=== PATIENT | male | born 1975 | race Caucasian/White ===

== ENCOUNTER → 2018-10-19 | Outpatient (REF) | payer BC ==
[2018-10-19 19:48] LABS: HEMATOCRIT 44.1 % (42.0-52.0); HEMOGLOBIN 14.8 g/dl (13.5-17.5); MEAN CORPUSCULAR HEMOGLOBIN 27.5 pg (27.0-33.0); MEAN CORPUSCULAR HGB CONC 33.6 g/dl (32.0-36.5); MEAN CORPUSCULAR VOLUME 81.8 fl (80.0-96.0); PLATELET COUNT, AUTOMATED 292 10^3/uL (150-450); RED BLOOD COUNT 5.39 10^6/uL (4.30-6.10); WHITE BLOOD COUNT 11.4 10^3/uL (4.0-10.0)
[2018-10-19 20:07] LABS: HEMOGLOBIN A1c 6.8 %; MALB URINE SIEMENS 27.8 MG/L; MAU/CREAT RATIO 26.2 MCG/MG (0.0-30.0)
[2018-10-19 20:19] LABS: ALBUMIN 4.1 GM/DL (3.2-5.2); ALT/SGPT 31 U/L (12-78); BILIRUBIN,TOTAL 0.3 MG/DL (0.2-1.0); BLOOD UREA NITROGEN 23 MG/DL (7-18); CARBON DIOXIDE LEVEL 25 MEQ/L (21-32); CHLORIDE LEVEL 107 MEQ/L (98-107); CREATININE FOR GFR 0.74 MG/DL (0.70-1.30); FREE T4 0.97 NG/DL (0.76-1.46); GLOMERULAR FILTRATION RATE > 60.0 (>60); GLUCOSE, FASTING 89 MG/DL (70-100); POTASSIUM SERUM 3.8 MEQ/L (3.5-5.1); SODIUM LEVEL 139 MEQ/L (136-145); TOTAL PROTEIN 7.9 GM/DL (6.4-8.2)
== END ==
LOC: M SFHCADAM 16:34
PROVIDERS: ATTEND Physician Assistant
DX: G47.33 Obstructive sleep apnea (adult) (pediatric) (principal); E11.9 Type 2 diabetes mellitus without complications; R03.0 Elevated blood-pressure reading, without diagnosis of hypertension

== ENCOUNTER → 2019-03-20 | Outpatient (CLI) | payer BC ==
--- NOTE | 2019-03-20 14:18 | REP ---
Left lower extremity deep vein duplex ultrasound: The deep veins demonstrate normal compression, normal Doppler color flow and normal Doppler waveforms with respiration and augmentation from the popliteal vein to the common femoral vein. Impression: There is no deep vein thrombus. Electronically Signed by Alvaro Lopes MD 03/20/2019 02:09 P
== END ==
LOC: M RAD 13:38
PROVIDERS: ATTEND Physician Assistant
DX: M79.605 Pain in left leg (principal)

== ENCOUNTER → 2019-04-03 | Outpatient (REF) | payer BC | LOC: M SFHCADAM 08:58 | PROVIDERS: ATTEND Physician Assistant | DX: E11.9 Type 2 diabetes mellitus without complications (principal); E78.2 Mixed hyperlipidemia ==

== ENCOUNTER → 2019-11-06 | Outpatient (REF) | payer BC ==
[2019-11-06 13:27] LABS: HEMATOCRIT 46.1 % (42.0-52.0); HEMOGLOBIN 15.3 g/dl (13.5-17.5); MEAN CORPUSCULAR HEMOGLOBIN 28.1 pg (27.0-33.0); MEAN CORPUSCULAR HGB CONC 33.2 g/dl (32.0-36.5); MEAN CORPUSCULAR VOLUME 84.6 fl (80.0-96.0); PLATELET COUNT, AUTOMATED 289 10^3/uL (150-450); RED BLOOD COUNT 5.45 10^6/uL (4.30-6.10); WHITE BLOOD COUNT 8.7 10^3/uL (4.0-10.0)
[2019-11-06 13:53] LABS: HEMOGLOBIN A1c 6.7 %
[2019-11-06 14:01] LABS: MALB URINE SIEMENS 23.7 MG/L
[2019-11-06 14:04] LABS: ALBUMIN 3.8 GM/DL (3.2-5.2); ALT/SGPT 33 U/L (12-78); BILIRUBIN,TOTAL 0.4 MG/DL (0.2-1.0); BLOOD UREA NITROGEN 23 MG/DL (7-18); CALCIUM LEVEL 9.2 MG/DL (8.5-10.1); CARBON DIOXIDE LEVEL 25 MEQ/L (21-32); CHLORIDE LEVEL 105 MEQ/L (98-107); CHOLESTEROL LEVEL 128 MG/DL (<200); CHOLESTEROL RISK RATIO 4.571 (<5); CREATININE FOR GFR 0.74 MG/DL (0.70-1.30); GLOMERULAR FILTRATION RATE > 60.0 (>60); GLUCOSE, FASTING 128 MG/DL (70-100); HDL CHOLESTEROL 28 MG/DL (>40); LDL CHOLESTEROL 26 MG/DL (<100); NON-HDL-C 100 MG/DL; POTASSIUM SERUM 4.3 MEQ/L (3.5-5.1); SODIUM LEVEL 137 MEQ/L (136-145); TOTAL PROTEIN 7.5 GM/DL (6.4-8.2); TRIGLYCERIDES LEVEL 368 MG/DL (<150)
== END ==
LOC: M SFHCADAM 12:48
PROVIDERS: ATTEND Physician Assistant
DX: E11.9 Type 2 diabetes mellitus without complications (principal); E78.2 Mixed hyperlipidemia; F32.4 Major depressive disorder, single episode, in partial remission; R00.0 Tachycardia, unspecified

== ENCOUNTER → 2019-11-12 | Outpatient (CLI) | payer BC ==
--- NOTE | 2019-11-18 06:46 | SLEEPCENT ---
DATE: 11/12/2019 ORDERED BY: Radha Pittman RN, ANP Nocturnal polysomnography was performed for evaluation of sleep physiology in this patient with a prior history of obstructive sleep apnea syndrome. Eight hours and 37 minutes of data were reviewed. There were only 79 minutes of sleep identified. Sleep latency was mildly prolonged at 33 minutes. REM sleep was not achieved. Sleep architecture when sleep was achieved showed poor progression and significant fragmentation. Overall sleep efficiency was 15.4%. The electrocardiogram showed a sinus rhythm with an average heart rate of 80 beats per minute. EEG showed normal waveforms for wake and sleep. There were 172 respiratory events identified of 10 seconds in duration or greater for an apnea/hypopnea index of 130.6. The events were obstructive, occurred in non-REM and were no exclusive to sleep position. Arousals from respiratory events occurred 15.9 times per hour, and oxygen desaturations were seen into the low 80s. Minimal limb activity was appreciated and the remaining measures of sleep physiology were normal. IMPRESSION: Severe obstructive sleep apnea syndrome (G47.33). Apnea/hypopnea index 130.6. RECOMMENDATION: The patient should be encouraged to return to [facility] for pressure therapy at his earliest convenience. In the interim, alcohol and sedative avoidance should be practiced and caution exercised during the operation of motor vehicles. MG
== END ==
LOC: M SLEEP 20:00
PROVIDERS: ATTEND Nurse Practitioner Adult Health
DX: G47.33 Obstructive sleep apnea (adult) (pediatric) (principal)

== ENCOUNTER → 2020-12-14 | Outpatient (REF) | payer BC ==
[2020-12-14 13:26] LABS: HEMATOCRIT 44.7 % (42.0-52.0); HEMOGLOBIN 14.9 g/dl (13.5-17.5); MEAN CORPUSCULAR HEMOGLOBIN 27.9 pg (27.0-33.0); MEAN CORPUSCULAR HGB CONC 33.3 g/dl (32.0-36.5); MEAN CORPUSCULAR VOLUME 83.6 fl (80.0-96.0); PLATELET COUNT, AUTOMATED 265 10^3/uL (150-450); RED BLOOD COUNT 5.35 10^6/uL (4.30-6.10); WHITE BLOOD COUNT 9.8 10^3/uL (4.0-10.0)
[2020-12-14 13:47] LABS: HEMOGLOBIN A1c 6.9 %
[2020-12-14 13:59] LABS: ALBUMIN 3.7 GM/DL (3.2-5.2); ALT/SGPT 31 U/L (12-78); BILIRUBIN,TOTAL 0.3 MG/DL (0.2-1.0); BLOOD UREA NITROGEN 25 MG/DL (7-18); CARBON DIOXIDE LEVEL 27 MEQ/L (21-32); CHLORIDE LEVEL 104 MEQ/L (98-107); CHOLESTEROL LEVEL 123 MG/DL (<200); CREATININE FOR GFR 0.76 MG/DL (0.70-1.30); GLOMERULAR FILTRATION RATE > 60.0 (>60); GLUCOSE, FASTING 152 MG/DL (70-100); HDL CHOLESTEROL 25 MG/DL (>40); LDL CHOLESTEROL 34 MG/DL (<100); NON-HDL-C 98 MG/DL; POTASSIUM SERUM 4.5 MEQ/L (3.5-5.1); SODIUM LEVEL 137 MEQ/L (136-145); TOTAL PROTEIN 7.1 GM/DL (6.4-8.2); TRIGLYCERIDES LEVEL 321 MG/DL (<150)
[2020-12-14 14:01] LABS: TOTAL 25(OH) VITAMIN D 30.9 NG/ML (30.0-100.0); VITAMIN B12 LEVEL 672 PG/ML
[2020-12-14 14:02] LABS: FOLATE 8.2 NG/ML
== END ==
LOC: M SFHCADAM 07:56
PROVIDERS: ATTEND Physician Assistant
DX: E11.9 Type 2 diabetes mellitus without complications (principal); I10 Essential (primary) hypertension; E78.2 Mixed hyperlipidemia

== ENCOUNTER → 2021-06-14 | Outpatient (REF) | payer BC ==
[2021-06-14 13:11] LABS: BLOOD UREA NITROGEN 33 MG/DL (7-18); CARBON DIOXIDE LEVEL 27 MEQ/L (21-32); CHLORIDE LEVEL 105 MEQ/L (98-107); CREATININE FOR GFR 0.83 MG/DL (0.70-1.30); GLOMERULAR FILTRATION RATE > 60.0 (>60); GLUCOSE, FASTING 150 MG/DL (70-100); POTASSIUM SERUM 4.6 MEQ/L (3.5-5.1); SODIUM LEVEL 137 MEQ/L (136-145)
[2021-06-14 13:30] LABS: HEMOGLOBIN A1c 7.3 %
== END ==
LOC: M SFHCADAM 08:07
PROVIDERS: ATTEND Physician Assistant
DX: E11.9 Type 2 diabetes mellitus without complications (principal); I10 Essential (primary) hypertension

== ENCOUNTER → 2021-12-24 | Outpatient (REF) | payer BC ==
[2021-12-24 13:44] LABS: HEMATOCRIT 43.9 % (42.0-52.0); HEMOGLOBIN 14.6 g/dl (13.5-17.5); MEAN CORPUSCULAR HEMOGLOBIN 28.1 pg (27.0-33.0); MEAN CORPUSCULAR HGB CONC 33.3 g/dl (32.0-36.5); MEAN CORPUSCULAR VOLUME 84.6 fl (80.0-96.0); PLATELET COUNT, AUTOMATED 289 10^3/uL (150-450); RED BLOOD COUNT 5.19 10^6/uL (4.30-6.10); WHITE BLOOD COUNT 8.9 10^3/uL (4.0-10.0)
[2021-12-24 14:58] LABS: ALBUMIN 3.4 GM/DL (3.2-5.2); ALT/SGPT 32 U/L (12-78); BILIRUBIN,TOTAL 0.3 MG/DL (0.2-1.0); BLOOD UREA NITROGEN 20 MG/DL (7-18); CALCIUM LEVEL 8.5 MG/DL (8.5-10.1); CARBON DIOXIDE LEVEL 23 MEQ/L (21-32); CHLORIDE LEVEL 106 MEQ/L (98-107); CHOLESTEROL LEVEL 121 MG/DL (<200); FREE T4 0.99 NG/DL (0.76-1.46); GLOMERULAR FILTRATION RATE > 60.0 (>60); GLUCOSE, FASTING 141 MG/DL (70-100); HDL CHOLESTEROL 25 MG/DL (>40); LDL CHOLESTEROL 49 MG/DL (<100); NON-HDL-C 96 MG/DL; SODIUM LEVEL 137 MEQ/L (136-145); TOTAL PROTEIN 7.1 GM/DL (6.4-8.2); TRIGLYCERIDES LEVEL 237 MG/DL (<150)
[2021-12-24 21:43] LABS: MALB URINE SIEMENS 16.1 MG/L; MAU/CREAT RATIO 8.1 MCG/MG (0.0-30.0)
== END ==
LOC: M SFHCADAM 07:40
PROVIDERS: ATTEND Physician Assistant
DX: E11.9 Type 2 diabetes mellitus without complications (principal); I10 Essential (primary) hypertension; E78.2 Mixed hyperlipidemia

== ENCOUNTER → 2022-06-21 | Outpatient (REF) | payer BC ==
[2022-06-21 13:14] LABS: ALBUMIN 3.8 G/DL (3.2-5.2); ALKALINE PHOSPHATASE 60 U/L (46-116); ALT/SGPT 34 U/L (7.0-40); AST/SGOT 21 U/L (<34); BILIRUBIN,TOTAL 0.2 MG/DL (0.3-1.2); BLOOD UREA NITROGEN 22 MG/DL (9-23); CALCIUM LEVEL 9.1 MG/DL (8.5-10.1); CARBON DIOXIDE LEVEL 26 MMOL/L (20-31); CHLORIDE LEVEL 104 MMOL/L (98-107); CREATININE FOR GFR 0.68 MG/DL (0.70-1.30); GLOMERULAR FILTRATION RATE > 60.0 (>60); GLUCOSE, FASTING 159 MG/DL (60-100); POTASSIUM SERUM 4.7 MMOL/L (3.5-5.1); SODIUM LEVEL 137 MMOL/L (136-145); TOTAL PROTEIN 7.2 G/DL (5.7-8.2)
[2022-06-21 13:30] LABS: HEMOGLOBIN A1c 7.3 % (4.0-6.0)
== END ==
LOC: M SFHCADAM 08:08
PROVIDERS: ATTEND Physician Assistant
DX: E11.9 Type 2 diabetes mellitus without complications (principal); I10 Essential (primary) hypertension

== ENCOUNTER → 2023-05-29 | Outpatient (REF) | payer BC ==
[2023-05-29 12:45] LABS: ALBUMIN 3.7 G/DL (3.2-5.2); ALKALINE PHOSPHATASE 55 U/L (46-116); ALT/SGPT 39 U/L (7.0-40); AST/SGOT 17 U/L (<34); BILIRUBIN,TOTAL 0.4 MG/DL (0.3-1.2); BLOOD UREA NITROGEN 26 MG/DL (9-23); CALCIUM LEVEL 9.4 MG/DL (8.5-10.1); CARBON DIOXIDE LEVEL 26 MMOL/L (20-31); CHLORIDE LEVEL 105 MMOL/L (98-107); CHOLESTEROL LEVEL 168 MG/DL (<200); CHOLESTEROL RISK RATIO 5.91 (<5); CREATININE FOR GFR 0.69 MG/DL (0.70-1.30); GLOMERULAR FILTRATION RATE > 60.0 (>60); GLUCOSE, FASTING 146 MG/DL (60-100); HDL CHOLESTEROL 28.4 MG/DL (>40); LDL CHOLESTEROL 80.6 MG/DL (<100); NON-HDL-C 139.6 MG/DL; POTASSIUM SERUM 4.5 MMOL/L (3.5-5.1); SODIUM LEVEL 135 MMOL/L (136-145); TOTAL PROTEIN 6.9 G/DL (5.7-8.2); TRIGLYCERIDES LEVEL 295 MG/DL (<150)
[2023-05-29 12:47] LABS: THYROID STIMULATING HORMONE 1.879 uIU/ML (0.55-4.78)
[2023-05-29 12:49] LABS: HEMATOCRIT 46.3 % (42.0-52.0); HEMOGLOBIN 15.7 g/dl (13.5-17.5); MEAN CORPUSCULAR HEMOGLOBIN 28.5 pg (27.0-33.0); MEAN CORPUSCULAR HGB CONC 33.9 g/dl (32.0-36.5); PLATELET COUNT, AUTOMATED 288 10^3/uL (150-450); RED BLOOD COUNT 5.51 10^6/uL (4.30-6.10); WHITE BLOOD COUNT 8.9 10^3/uL (4.0-10.0)
[2023-05-29 13:09] LABS: CREATININE, URINE 136.9 MG/DL; MAU/CREAT RATIO 4.3 MCG/MG (0.0-30.0)
[2023-05-29 13:14] LABS: HEMOGLOBIN A1c 7.5 % (4.0-6.0)
== END ==
LOC: M SFHCADAM 07:37
PROVIDERS: ATTEND Physician Assistant
DX: I10 Essential (primary) hypertension (principal); E11.9 Type 2 diabetes mellitus without complications; E78.2 Mixed hyperlipidemia

== ENCOUNTER → 2023-09-28 | Outpatient (REF) | payer BC | LOC: M SFHCADAM 08:40 | PROVIDERS: ATTEND Physician Assistant | DX: E11.9 Type 2 diabetes mellitus without complications (principal) ==

== ENCOUNTER → 2023-10-04 | Outpatient (REF) | payer BC ==
[2023-10-04 14:41] LABS: BLOOD UREA NITROGEN 28 MG/DL (9-23); CALCIUM LEVEL 9.1 MG/DL (8.5-10.1); CARBON DIOXIDE LEVEL 24 MMOL/L (20-31); CHLORIDE LEVEL 105 MMOL/L (98-107); CREATININE FOR GFR 0.56 MG/DL (0.70-1.30); GLOMERULAR FILTRATION RATE > 60.0 (>60); GLUCOSE, FASTING 131 MG/DL (60-100); POTASSIUM SERUM 4.4 MMOL/L (3.5-5.1); SODIUM LEVEL 138 MMOL/L (136-145)
[2023-10-04 15:19] LABS: HEMOGLOBIN A1c 6.8 % (4.0-6.0)
== END ==
LOC: M SFHCADAM 07:50
PROVIDERS: ATTEND Physician Assistant
DX: E11.9 Type 2 diabetes mellitus without complications (principal)

== ENCOUNTER → 2023-11-08 | Outpatient (CLI) | payer BC | LOC: M ADAMS 11:29 | PROVIDERS: ATTEND Physician Assistant Medical | DX: M47.27 Other spondylosis with radiculopathy, lumbosacral region (principal) ==

== ENCOUNTER → 2024-01-03 | Outpatient (REF) | payer BC ==
[2024-01-03 14:02] LABS: ALBUMIN 3.8 G/DL (3.2-5.2); ALKALINE PHOSPHATASE 60 U/L (40-129); ALT/SGPT 29 U/L (7.0-40); AST/SGOT 12 U/L (<34); BILIRUBIN,TOTAL 0.4 MG/DL (0.3-1.2); BLOOD UREA NITROGEN 31 MG/DL (9-23); CALCIUM LEVEL 10.6 MG/DL (8.5-10.1); CARBON DIOXIDE LEVEL 26 MMOL/L (20-31); CHLORIDE LEVEL 104 MMOL/L (98-107); CREATININE FOR GFR 0.71 MG/DL (0.70-1.30); GLOMERULAR FILTRATION RATE > 60.0 (>60); GLUCOSE, FASTING 126 MG/DL (60-100); POTASSIUM SERUM 4.8 MMOL/L (3.5-5.1); SODIUM LEVEL 139 MMOL/L (136-145); TOTAL PROTEIN 7.4 G/DL (5.7-8.2)
== END ==
LOC: M SFHCADAM 07:30
PROVIDERS: ATTEND Physician Assistant
DX: E11.9 Type 2 diabetes mellitus without complications (principal)

== ENCOUNTER → 2024-06-17 | Outpatient (REF) | payer BC ==
[2024-06-17 13:50] LABS: BLOOD UREA NITROGEN 30 MG/DL (9-23); CALCIUM LEVEL 9.2 MG/DL (8.5-10.1); CARBON DIOXIDE LEVEL 26 MMOL/L (20-31); CHLORIDE LEVEL 104 MMOL/L (98-107); CREATININE FOR GFR 0.71 MG/DL (0.70-1.30); GLOMERULAR FILTRATION RATE > 90.0 (>56); GLUCOSE, FASTING 134 MG/DL (60-100); POTASSIUM SERUM 4.3 MMOL/L (3.5-5.1); SODIUM LEVEL 138 MMOL/L (136-145)
== END ==
LOC: M SFHCADAM 07:56
PROVIDERS: ATTEND Physician Assistant
DX: E11.9 Type 2 diabetes mellitus without complications (principal); I10 Essential (primary) hypertension; E78.2 Mixed hyperlipidemia; Z28.21 Immunization not carried out because of patient refusal

== ENCOUNTER → 2024-06-18 | Outpatient (REF) | payer BC ==
[2024-06-18 13:57] LABS: HEMOGLOBIN A1c 6.4 % (4.0-6.0)
== END ==
LOC: M SFHCADAM 10:06
PROVIDERS: ATTEND Physician Assistant
DX: Z28.21 Immunization not carried out because of patient refusal (principal)

== ENCOUNTER → 2024-09-17 | Outpatient (REF) | payer BC | LOC: M SFHCADAM 16:51 | PROVIDERS: ATTEND Physician Assistant | DX: L03.115 Cellulitis of right lower limb (principal); L02.415 Cutaneous abscess of right lower limb ==

== ENCOUNTER → 2024-09-19 | Outpatient (CLI) | payer BC | LOC: M RAD 14:13 | PROVIDERS: ATTEND Physician Assistant | DX: L02.415 Cutaneous abscess of right lower limb (principal) ==

== ENCOUNTER 2024-10-23 09:28 | Day surgery (SDC) | payer BC ==
[~2024-10-23] VITALS: Ht 182.9 cm; Wt 117.5 kg
[~2024-10-23 09:28] MED LIST: ECOT81TA5 PO; FENO48TA8 PO; JARD1TAB3 PO; LISD40CA PO; LISI20TA33 PO; ROSU20TA86 PO; TIRZ7.5P
[2024-10-23 10:47] VITALS: TEMP 98.9
[2024-10-23] MEDS ORDERED: LIDOCAINE 2% 100 MG/5 ML SDV (FOR ANES.) As Ordered ONE (10:51)
[2024-10-23 11:02] VITALS: BP 124/72; O2SAT 94
== END 2024-10-23 11:08 | disposition home or self-care (01) ==
LOC: M OPP 09:28
PROVIDERS: ATTEND Surgery
DX: Z12.11 Encounter for screening for malignant neoplasm of colon (principal); K64.1 Second degree hemorrhoids; G47.30 Sleep apnea, unspecified; Z88.5 Allergy status to narcotic agent; Z88.8 Allergy status to other drugs, medicaments and biological substances; Z91.040 Latex allergy status; Z91.010 Allergy to peanuts; Z79.82 Long term (current) use of aspirin; Z79.84 Long term (current) use of oral hypoglycemic drugs; Z79.85 Long-term (current) use of injectable non-insulin antidiabetic drugs; Z79.899 Other long term (current) drug therapy

== ENCOUNTER → 2025-02-12 | Outpatient (REF) | payer BC ==
[2025-02-12 14:55] LABS: BASO # 0.1 10^3/uL (0.0-0.2); BASO % 0.9 % (0.0-1.0); EOS # 0.2 10^3/uL (0.0-0.5); EOS % 2.9 % (0.0-3.0); LYMPH # 2.6 10^3/uL (1.5-5.0); LYMPH % 31.8 % (24.0-44.0); MONO # 0.6 10^3/uL (0.0-0.8); MONO % 6.9 % (2.0-8.0); NEUTROPHILS # 4.7 10^3/uL (1.5-8.5); NEUTROPHILS % 57.3 % (36.0-66.0); PLATELET COUNT, AUTOMATED 264 10^3/uL (150-450)
[2025-02-12 15:16] LABS: ESTIMATED AVERAGE GLUCOSE 154.0 MG/DL (60-110)
[2025-02-12 15:29] LABS: ALT/SGPT 29 U/L (7.0-40); AST/SGOT 21 U/L (<34); CALCIUM LEVEL 8.8 MG/DL (8.5-10.1); CARBON DIOXIDE LEVEL 27 MMOL/L (20-31); CHLORIDE LEVEL 104 MMOL/L (98-107); CREATININE FOR GFR 0.75 MG/DL (0.70-1.30); GLOMERULAR FILTRATION RATE > 90.0 (>56); POTASSIUM SERUM 4.9 MMOL/L (3.5-5.1); PSA SCREENING 0.67 NG/ML (< 4.00); SODIUM LEVEL 140 MMOL/L (136-145)
[2025-02-12 15:30] LABS: FREE T4 1.18 NG/DL (0.89-1.76)
== END ==
LOC: M SFHCADAM 09:04
PROVIDERS: ATTEND Physician Assistant
DX: Z00.00 Encounter for general adult medical examination without abnormal findings (principal); E11.9 Type 2 diabetes mellitus without complications; I10 Essential (primary) hypertension; E78.1 Pure hyperglyceridemia; F90.9 Attention-deficit hyperactivity disorder, unspecified type; Z12.5 Encounter for screening for malignant neoplasm of prostate
CPT/HCPCS: 80053; 83036; 84439; 84443; 85025; G0103